=== PATIENT | female | born 1970 | race American Indian/Alaskan Native ===

== ENCOUNTER 2018-10-11 20:29 | Emergency (ER) | payer MEDICARE ==
[2018-10-11] MEDS ORDERED: TYLENOL PO ONE (20:47)
[2018-10-11 21:18] LABS: Basophils # (Auto) 0.1 K/mm3 (0.0-0.1); Basophils % (Auto) 0.9 % (0.0-1.8); Eosinophils # (Auto) 0.2 K/mm3 (0.0-0.4); Hemoglobin 14.1 gm/dl (10.1-14.3); Lymphocytes % (Auto) 38.9 % (13.4-35.0); Mean Corpuscular HGB Conc 34 % (30-34); Mean Corpuscular Volume 93 fl (79-97); Monocytes # (Auto) 0.5 K/mm3 (0.0-0.8); Monocytes % (Auto) 6.6 % (0.0-7.3); Platelet Count 253 K/mm3 (140-440); Red Blood Count 4.51 M/mm3 (3.65-5.03); Red Cell Distribution Width 14.3 % (13.2-15.2)
[2018-10-11 21:27] LABS: Albumin 4.2 g/dL (3.9-5); Calcium 9.2 mg/dL (8.4-10.2)
[2018-10-11 21:54] LABS: Bilirubin,Urine NEG (Negative); Blood,Urine NEG (Negative); Color,Urine Yellow (Yellow); Mucus,Urine FEW /HPF
[2018-10-11] MEDS ORDERED: TORADOL IV ONE (23:51)
[2018-10-11] MEDS ORDERED: XYLOCAINE 1% MPF 5 mL INFILTRATI ONE (23:51)
[2018-10-11] MEDS ORDERED: ZOFRAN IV ONE (23:51)
[2018-10-11] MEDS ORDERED: ROCEPHIN IM ONE (23:51)
--- NOTE | 2018-10-12 00:15 | Emergency Department Report ---
HPI - General Chief Complaint: Abdominal Pain Time Seen by Provider: 10/11/18 23:48 - HPI HPI: This 48-year-old [place] female who presents for left abdomen Her abdominal pain 2 days. He states 2 episodes of nausea and vomiting there is no fever there is no chills For routine and spasms radiating from the left flank to sleep. There is no vaginal bleeding no vaginal spotting patient is tolerating by mouth intake patient has a history of recurrent UTI there is no hematuria no flow problem no fever or chills. ED Past Medical Hx - Past Medical History Previous Medical History?: Yes Hx Seizures: Yes Hx Asthma: Yes - Surgical History Past Surgical History?: Yes Additional Surgical History: Open heart X 2, ACL - Social History Smoking Status: Current Every Day Smoker Substance Use Type: None - Medications Home Medications: Home Medications Medication Instructions Recorded Confirmed Last Taken Type Ibuprofen 800 mg PO TID PRN #30 tablet 10/12/18 Unknown Rx Nitrofurantoin Monohyd/M-Cryst 100 mg PO BID 7 Days #14 capsule 10/12/18 Unknown Rx [Macrobid 100 mg Capsule] Ondansetron [Zofran Odt] 4 mg PO Q8HR #12 tab.rapdis 10/12/18 Unknown Rx ED Review of Systems ROS: Stated complaint: ABDOMINAL PAIN Other details as noted in HPI Constitutional: denies: chills, fever Eyes: denies: eye pain, eye discharge, vision change ENT: denies: ear pain, throat pain Respiratory: denies: cough, shortness of breath, wheezing Cardiovascular: denies: chest pain, palpitations Endocrine: no symptoms reported Gastrointestinal: abdominal pain, nausea, vomiting. denies: diarrhea, constipation, hematemesis, melena, hematochezia Genitourinary: frequency. denies: urgency, dysuria, hematuria, discharge, abnormal menses, dyspareunia Musculoskeletal: denies: back pain, joint swelling, arthralgia, myalgia Skin: denies: rash, lesions, change in color, change in hair/nails, pruritus Neurological: denies: headache, weakness, paresthesias Psychiatric: denies: anxiety, depression Hematological/Lymphatic: denies: easy bleeding, easy bruising Physical Exam - Physical Exam General: Patient appears well in no acute distress ,appears nontoxic well-hydrated well- nourished Physical Exam: There is positive left-sided CVA tenderness abdomen is soft with mild left lower quadrant tenderness to deep palpation there is no rebound . no swelling no ED Course - Reevaluation(s) Reevaluation #1: [email or web address], 10/12/18 00:14 ED Medical Decision Making - Lab Data Result diagrams: 10/11/18 20:53 10/11/18 20:53 Labs 10/11/18 10/11/18 10/11/18 20:53 20:53 21:39 WBC 7.8 RBC 4.51 Hgb 14.1 Hct 42.0 MCV 93 MCH 31 MCHC 34 RDW 14.3 Plt Count 253 Lymph % (Auto) 38.9 H [place] % (Auto) 6.6 Eos % (Auto) 3.0 Baso % (Auto) 0.9 Lymph # 3.0 [place] # 0.5 Eos # 0.2 Baso # 0.1 Seg Neutrophils % 50.6 Seg Neutrophils # 3.9 Sodium 138 Potassium 3.3 L Chloride 100.1 Carbon Dioxide 23 Anion Gap 18 BUN 15 Creatinine 1.0 Estimated GFR 59 BUN/Creatinine Ratio 15 Glucose 138 H Calcium 9.2 Total Bilirubin 0.30 AST 18 ALT 18 Alkaline Phosphatase 84 Total Protein 7.6 Albumin 4.2 Albumin/Globulin Ratio 1.2 Urine Color Yellow Urine Turbidity Slightly-cloudy Urine pH 5.0 Ur Specific [place] 1.030 Urine Protein 30 mg/dl Urine Glucose (UA) Neg Urine Ketones Neg Urine Blood Neg Urine Nitrite Neg Urine Bilirubin Neg Urine Urobilinogen 2.0 Ur Leukocyte Esterase Mod Urine WBC (Auto) 22.0 H Urine RBC (Auto) 2.0 U Epithel Cells (Auto) 10.0 Urine Mucus Few - EKG Data -: EKG Interpreted by [place] EKG shows normal: sinus rhythm, axis, intervals, QRS complexes, ST-T waves Rate: normal, tachycardia - EKG Data 10/12/18 00:18 All normal - Medical Decision Making This is a UTI not likely Renal stone cr: normal no wbc no fever no chills, plan, rocephin , ibuprofen, dc to home with rx for macrobid, ibuprofen, zofran prn, pt will follow up with pcp in 2-3 days pt verbalized agreement and understanding of same. Critical care attestation.: If time is entered above; I have spent that time in minutes in the direct care of this critically ill patient, excluding procedure time. ED Disposition Clinical Impression: UTI (urinary tract infection) Qualifiers: Urinary tract infection type: acute cystitis Hematuria presence: without hematuria Qualified Code(s): N30.00 - Acute cystitis without hematuria Disposition: TO HOME OR SELFCARE Is pt being admited?: No Does the pt Need Aspirin: No Condition: Good Instructions: Abdominal Pain (ED) Prescriptions: Ibuprofen 800 mg PO TID PRN #30 tablet PRN Reason: pain fever Nitrofurantoin Monohyd/M-Cryst [Macrobid 100 mg Capsule] 100 mg PO BID 7 Days #14 capsule Ondansetron [Zofran Odt] 4 mg PO Q8HR #12 tab.rapdis Referrals: PRIMARY CARE, [Primary Care Provider] - 3-5 Days Forms: Work/School Release Form(ED) Time of Disposition: 00:27
[2018-10-12 01:21] VITALS: BP 122/74
== END 2018-10-12 01:19 | disposition home or self-care (01) ==
LOC: ED 20:29
DX: N39.0 Urinary tract infection, site not specified (principal); J45.909 Unspecified asthma, uncomplicated; R11.2 Nausea with vomiting, unspecified; F17.200 Nicotine dependence, unspecified, uncomplicated; Z88.0 Allergy status to penicillin
CPT/HCPCS: 36415; 80053; 81001; 85025; 96372; 96374; 96375; 99283; J0696; J1885; J2405